=== PATIENT | male | born 1995 | race Caucasian/White ===

== ENCOUNTER 2016-04-11 23:28 | Emergency (ER) | payer BC | END 2016-04-12 01:08 | disposition left against medical advice (07) | LOC: ER 23:28 | DX: Z53.21 Procedure and treatment not carried out due to patient leaving prior to being seen by health care provider (principal) ==

== ENCOUNTER → 2016-04-11 | Emergency (ER) | payer SELFPAY | END | disposition left against medical advice (07) | LOC: ER 21:48 | DX: Z53.21 Procedure and treatment not carried out due to patient leaving prior to being seen by health care provider (principal) ==